=== PATIENT | male | born 1995 | race Caucasian/White ===

== ENCOUNTER 2025-06-06 15:28 | Emergency (ER) | payer MEDICAID ==
[~2025-06-06] VITALS: Ht 175.3 cm; Wt 115.7 kg
[2025-06-06 17:20] LABS: PLATELET COUNT (AUTO) 271 K/uL (150-450); RED BLOOD CELL COUNT(AUTO) 5.68 MIL/uL (4.5-6.0); RED CELL DISTRIBUTION WIDTH 13.6 % (11.5-15.0); WHITE BLOOD COUNT (AUTO) 15.1 K/uL (4.3-11.0)
[2025-06-06 17:27] LABS: CALCIUM, SERUM 9.5 mg/dL (8.5-10.1); CREATININE 1.0 mg/dL (0.6-1.3); SODIUM SERUM 140 mmol/L (136-145); UREA NITROGEN, BLOOD 14 mg/dL (7-18)
[2025-06-06 17:33] LABS: ASPARTATE AMINOTRANSFERASE 664 U/L (15-37); TOTAL PROTEIN, SERUM 8.7 g/dL (6.4-8.2)
[2025-06-06 20:58] LABS: AMPHETAMINE, URINE NEGATIVE (NEGATIVE); BARBITURATE, URINE NEGATIVE (NEGATIVE); BENZODIAZEPINE, URINE NEGATIVE (NEGATIVE); CANNABINOID, URINE NEGATIVE (NEGATIVE); COCCAINE, URINE NEGATIVE (NEGATIVE); OPIATE, URINE NEGATIVE (NEGATIVE)
[2025-06-06 21:00] LABS: APPEARANCE,URINE CLEAR (CLEAR); BLOOD, URINE TRACE-INTA Ery/uL (NEGATIVE); LEUKOCYTE ESTERASE ,URINE NEGATIVE (NEGATIVE); NITRITE, URINE NEGATIVE (NEGATIVE); UGLUCOSE NEGATIVE (NEGATIVE)
[2025-06-06 22:04] LABS: ADD URINE CULTURE NO; SQUAMOUS EPITHELIAL CELL,UR Rare /HPF (None Seen)
[2025-06-06] MEDS ORDERED: OLANZAPINE 5 MG TABLET ONE (23:56)
[2025-06-06] MEDS: OLANZAPINE 5 MG TABLET PO ONE (23:59)
[2025-06-07] MEDS ORDERED: OLANZAPINE 10 MG VIAL IM ONE (00:07)
[2025-06-07] MEDS ORDERED: LORAZEPAM INJ 2 MG/ML VIAL ONE (00:08)
[2025-06-07] MEDS ORDERED: HALOPERIDOL LACTATE INJ 5 MG/ML VIAL ONE (00:09)
[2025-06-07] MEDS: HALOPERIDOL LACTATE INJ 5 MG/ML VIAL IM ONE (00:12)
[2025-06-07] MEDS: LORAZEPAM 4 MG/ML VIAL IM ONE (00:12)
[2025-06-07 14:00] VITALS: BP 129/61; TEMP 98; O2SAT 99
[2025-06-07] MEDS: OLANZAPINE 5 MG TABLET PO ONE (15:00)
== END 2025-06-07 19:19 | disposition left against medical advice (07) ==
LOC: ER 15:40
DX: R45.851 Suicidal ideations (principal); R44.0 Auditory hallucinations; D72.829 Elevated white blood cell count, unspecified; Z20.822 Contact with and (suspected) exposure to COVID-19
CPT/HCPCS: 99285; 85025; 80048; 80076; 81001; 36415; 87426; 80143; 80320; 80307; 96372 ×2; J2060 ×2; J1200; J1630; G0480; J3490